=== PATIENT | female | born 1980 | race Hispanic/Latino ===

== ENCOUNTER 2024-08-08 01:17 | Emergency (ER) | payer OTHER ==
[~2024-08-08] VITALS: Ht 157.5 cm; Wt 58.5 kg
[2024-08-08 01:43] LABS: BASOPHILS # (AUTO) 0.09 K/uL (0.00-0.20); BASOPHILS % (AUTO) 0.9 % (0.0-5.0); EOSINOPHILS % (AUTO) 2.9 % (0.0-8.0); HEMATOCRIT 39.1 % (36-48); IMMATURE GRANULOCYTE ABSOLUTE 0.02 K/uL (0-1); LYMPHOCYTES # (AUTO) 3.8 K/uL (1.0-4.8); MEAN CORPUSCULAR HEMOGLOBIN 32.1 pg (27.0-33.0); MEAN CORPUSCULAR HGB CONC 34.3 g/dL (32.0-36.0); MEAN CORPUSCULAR VOLUME 93.5 fL (79-99); MONOCYTES # (AUTO) 0.8 K/uL (0.1-1.0); NEUTROPHILS # (AUTO) 5.3 K/uL (1.8-7.7); PLATELET COUNT (AUTO) 368 K/uL (130-400); RED BLOOD CELL COUNT(AUTO) 4.18 MIL/uL (4.00-5.50); RED CELL DISTRIBUTION WIDTH 12.7 % (11.0-15.5); WHITE BLOOD COUNT (AUTO) 10.4 K/uL (4.8-10.8)
[2024-08-08 01:51] LABS: CREATININE 0.7 mg/dL (0.5-1.0); POTASSIUM 3.5 mmol/L (3.5-5.1)
--- NOTE | 2024-08-08 01:54 | ERN ---
General Chief Complaint: Abdominal Pain Stated Complaint: C/O LUQ PAIN WITH NAUSEA Time Seen by MD: 01:24 Source: patient History of Present Illness Initial Comments 44-year-old female with left upper quadrant pain for two days that seems to transiently improve with eating but then gets worse. The pain has a periodicity of about 5 minutes A caveat is that while she is eating it seems she gets a bout of left upper quadrant pain when the food enters her stomach, but then the pain resolves after eating. Maalox has not helped the symptoms. No other systemic symptoms. She comes to the emergency room today because the pain is getting worse. No nausea no vomiting no change in her stool pattern. She does say that she has not passed gas in the last day. No symptoms of a urinary tract infection no chest pain no shortness of breath. The pain is localized to her left upper quadrant. She has no other medical problems. She did have surgery to remove fibroids but that was done transvaginally not transabdominally. Allergies: Coded Allergies: No Known Allergies (Unverified Allergy, Unknown, 08/08/24) Past Medical History Past Medical History: No Pertinent History Past Surgical History: Other Surgical History Other: Removal fibroids transvaginally Social History Dication Patient rarely drinks alcohol Female( History) LMP: Jul 24, 2024 Constitutional: (-) chills, (-) diaphoresis, (-) fever, (-) malaise, (-) weakness, (-) other documentation EENTM: (-) eye pain, (-) blurred vision, (-) tearing, (-) double vision, (-) ear pain, (-) ear discharge, (-) nose pain, (-) nose congestion, (-) throat pain, (-) Throat swelling, (-) mouth pain, (-) tooth pain, (-) mouth swelling, (-) other documentation Respiratory: (-) cough, (-) orthopnea, (-) short of breath, (-) stridor, (-) wheezing, (-) other documentation Cardiovascular: (-) chest pain, (-) edema, (-) palpitations, (-) syncope, (-) dyspnea on exertion, (-) other documentation Gastrointestinal/Abdominal: (+) abdominal pain; (-) nausea, (-) vomiting, (-) diarrhea, (-) abdominal distention, (-) constipation, (-) rectal bleeding, (-) dark stool/melena, (-) other documentation Musculoskeletal: (-) Neck pain, (-) back pain, (-) Flank Pain, (-) joint pain, (-) joint swelling, (-) muscle pain, (-) muscle stiffness, (-) gout, (-) other documentation Neuro: (-) altered mental status, (-) headache, (-) syncope, (-) paralysis, (-) numbness, (-) seizure, (-) pre-existing deficit, (-) tremors, (-) weakness, (-) dizziness, (-) slurred speech, (-) vertigo, (-) other documentation Physical Exam General Appearance: (+) mild distress General Appearance comment Lying in the bed massaging her left upper quadrant wondering why she is having so much pain. Gastrointestinal: (+) soft, (+) non-tender, (+) bowel sound present Gastrointestinal Comment Patient's abdomen is nontender I can palpate with a lot of pressure and she does not react. She does not have muscle pain and she does not have rib pain on the left side either. Results Laboratory and Microbiology Lab and Micro Result Laboratory Tests Test 08/08/24 01:38 08/08/24 03:13 White Blood Count 10.4 K/uL (4.8-10.8) Red Blood Count 4.18 MIL/uL (4.00-5.50) Hemoglobin 13.4 g/dL (12.0-16.0) Hematocrit 39.1 % (36-48) Mean Corpuscular Volume 93.5 fL (79-99) Mean Corpuscular Hemoglobin 32.1 pg (27.0-33.0) Mean Corpuscular Hemoglobin Concent 34.3 g/dL (32.0-36.0) Red Cell Distribution Width 12.7 % (11.0-15.5) Platelet Count 368 K/uL (130-400) Mean Platelet Volume 9.5 fL (7.5-10.5) Immature Granulocyte % (Auto) 0.2 % (0-1) Neutrophils (%) (Auto) 51.0 % (40.0-77.0) Lymphocytes (%) (Auto) 37.0 % (21.0-51.0) Monocytes (%) (Auto) 8.0 % (3.0-13.0) Eosinophils (%) (Auto) 2.9 % (0.0-8.0) Basophils (%) (Auto) 0.9 % (0.0-5.0) Neutrophils # (Auto) 5.3 K/uL (1.8-7.7) Lymphocytes # (Auto) 3.8 K/uL (1.0-4.8) Monocytes # (Auto) 0.8 K/uL (0.1-1.0) Eosinophils # (Auto) 0.30 K/uL (0.00-0.70) Basophils # (Auto) 0.09 K/uL (0.00-0.20) Absolute Immature Granulocyte (auto 0.02 K/uL (0-1) Nucleated Red Blood Cells 0.0 % (0.0-0.19) Sodium Level 141 mmol/L (136-145) Potassium Level 3.5 mmol/L (3.5-5.1) Chloride Level 102 mmol/L (101-111) Carbon Dioxide Level 28 mmol/L (21-32) Blood Urea Nitrogen 17 mg/dL (7-18) Creatinine 0.7 mg/dL (0.5-1.0) Glomerular Filtration Rate Calc 109 mL/min (>90) Random Glucose 108 mg/dL (70-105) H Total Calcium 9.3 mg/dL (8.5-10.1) Total Bilirubin 0.3 mg/dL (0.2-1.0) Direct Bilirubin 0.1 mg/dL (0.0-0.3) Aspartate Amino Transf (AST/SGOT) 17 U/L (10-37) Alanine Aminotransferase (ALT/SGPT) 17 U/L (12-78) Alkaline Phosphatase 75 U/L (50-136) Total Protein 7.5 g/dL (6.0-8.3) Albumin 3.4 g/dL (3.5-5.0) L Triglycerides Level 118 mg/dL (30-200) Lipase 95 U/L (16-77) H Serum Test, Qualitative NEGATIVE (NEGATIVE) Urine Color LIGHT-YELLOW (YELLOW) Urine Appearance CLEAR (CLEAR) Urine pH 7.5 (5.0-8.0) Urine Specific Deridder 1.019 (1.001-1.031) Urine Protein NEGATIVE mg/dL (NEGATIVE) Urine Glucose (UA) NEGATIVE mg/dL (NEGATIVE) Urine Ketones NEGATIVE mg/dL (NEGATIVE) Urine Occult Blood MODERATE (NEGATIVE) H Urine Nitrate NEGATIVE (NEGATIVE) Urine Bilirubin NEGATIVE mg/dL (NEGATIVE) Urine Urobilinogen 0.2 mg/dL (0.2-1.0) Urine Leukocyte Esterase NEGATIVE Rolando/uL Urine RBC 11-25 /HPF (0-1) H Urine WBC 2-5 /HPF (0-1) H Urine Squamous Epithelial Cells RARE /HPF (0-2) Urine Bacteria RARE /HPF (None Seen) Urine HCG, Qualitative NEGATIVE (NEGATIVE) MDM I am not sure what is causing the patient's pain. It could be constipation, small-bowel obstruction, GERD, musculoskeletal, gastric ulcer. I will give her a GI cocktail. Check the usual labs. CT scan of the abdomen without contrast. CT scan shows an indistinct enlarged pancreas. Possible thickened stomach wall. No free air. No bowel distention, small or large. No kidney stones or hydronephrosis; although, patient does have blood in her urine. The large bowel is full of stool. Laboratory studies show an elevated lipase with normal LFTs and normal triglycerides. All things right now point to pancreatitis mild. Mild Pancreatitis can be managed at home as long as the patient can stay hydrated and the pain is bearable. The alternative is admission to the hospital for IV fluids and pain medications. Patient seemed amenable to managing her pancreatitis at home. I do not have an explanation for her pancreatitis as her triglycerides are normal her glucose is normal and she rarely drinks alcohol. She will go home and stick to a liquid diet with soups and Gatorade for a day or two before trying regular food again. A repeat CT scan with IV contrast confirms diagnosis of gastroenteritis and still a rather indistinct looking pancreas. I gave the patient some Toradol it controlled her pain well. I will send her home with a prescription for Toradol. ED Course Orders Procedure Category Date Status Time Vital Signs Per CPOE 08/08/24 Transmitted Routine 01:34 Saline Lock Iv CPOE 08/08/24 Transmitted 01:34 Cbc With Differential LAB 08/08/24 Complete 01:34 Lipase LAB 08/08/24 Complete 01:34 Basic Metabolic Panel LAB 08/08/24 Complete 01:34 ,Urine Test LAB 08/08/24 Complete 01:55 Urinalysis Profile LAB 08/08/24 Complete 01:55 Lactated Ringers PHA 08/08/24 Complete 1000ml (Lactated 02:00 Lidocaine Hcl 2% PHA 08/08/24 Complete Viscous (Lidocaine Hcl 02:00 Mag/Alum/Simeth 30ml PHA 08/08/24 Complete (Maalox Plus 30ml) 02:00 Dicyclomine Hcl PHA 08/08/24 Complete (Bentyl 10mg/5ml 02:00 Ct Abdomen/Pelvis W/O CT 08/08/24 Taken Contrast 01:55 Testing, LAB 08/08/24 Complete Serum Hcg 02:18 Hepatic Function Panel LAB 08/08/24 Complete 02:25 Triglycerides LAB 08/08/24 Complete 02:50 Ct Abdomen/Pelvis CT 08/08/24 Taken W/Contrast 04:04 Iohexol (Omnipaque) PHA 08/08/24 Complete 04:17 Ketorolac PHA 08/08/24 Complete Tromethamine 30mg/Ml 05:30 Current Medications Medications (Trade) Dose Ordered Sig/Timothy Route PRN Reason Start Time Stop Time Status Last Admin Dose Admin Al Hydroxide/Mg Hydroxide (MAALox PLUS 30ML) 30 ml ONCE ONCE PO 08/08/24 02:00 08/08/24 02:01 DC 08/08/24 02:02 Dicyclomine HCl (Bentyl 10mg/5ml Syrup) 10 mg ONCE ONCE PO 08/08/24 02:00 08/08/24 02:01 DC 08/08/24 02:02 Iohexol (Omnipaque) 35,000 mg STK-MED ONCE IV 08/08/24 04:17 08/08/24 04:23 DC Ketorolac Tromethamine (toRADol) 30 mg ONCE ONCE IVP 08/08/24 05:30 08/08/24 05:31 DC 08/08/24 05:18 Lactated Ringer's 1,000 ml @ 0 mls/hr ONCE ONCE IV 08/08/24 02:00 08/08/24 02:01 DC 08/08/24 02:02 Lidocaine HCl (Lidocaine HCl 2% Viscous) 10 ml ONCE ONCE PO 08/08/24 02:00 08/08/24 02:01 DC 08/08/24 02:02 Vital Signs Date Time Temp Pulse Resp B/P (MAP) Pulse Ox O2 Delivery O2 Flow Rate FiO2 08/08/24 04:57 98.2 78 18 132/82 98 Room Air* 0 21 08/08/24 01:40 98.1 80 18 129/89 97 Room Air* 0 21 08/08/24 01:19 98.1 78 20 122/85 98 Room Air DX & DISP Disposition: Discharge Departure Impression: Primary Impression: Pancreatitis Additional Impression: Gastroenteritis Condition: Stable Scripts Ketorolac Tromethamine (Toradol) 10 Mg Tab 1 TAB PO Q6HPRN PRN for pain for 5 Days, #20 TAB 0 Refills Prov: MELLY LAGOS MD 08/08/24 Additional Instructions: Please return if you feel you are becoming dehydrated and if the pain does not improve in a few days. Referrals: SELF,REFERRAL (PCP) MELLY LAGOS MD Aug 08, 2024 01:54
[2024-08-08] MEDS: MAG/ALUM/SIMETH 30 ML UDCUP PO ONE (02:02)
[2024-08-08] MEDS: LACTATED RINGERS 1000ML 1,000 ML IV ONE (02:02)
[2024-08-08] MEDS: DICYCLOMINE HCL 10 MG/5 ML ML PO ONE (02:02)
[2024-08-08] MEDS: LIDOCAINE HCL 2% VISCOUS 15 ML UDCUP PO ONE (02:02)
--- NOTE | 2024-08-08 02:06 | NUR ---
Dioni traylor in [facility] - 08/08/24 at 0225 by DAWSON REPORT GIVEN TO NEIDA TAYLOR PT GOING TO [facility]
[2024-08-08 03:26] LABS: ALBUMIN 3.4 g/dL (3.5-5.0); BILIRUBIN,DIRECT 0.1 mg/dL (0.0-0.3); BILIRUBIN,TOTAL 0.3 mg/dL (0.2-1.0); TOTAL PROTEIN, SERUM 7.5 g/dL (6.0-8.3)
[2024-08-08 03:28] LABS: APPEARANCE,URINE CLEAR (CLEAR); BILIRUBIN,URINE NEGATIVE (NEGATIVE); COLOR,URINE LIGHT-YELLOW (YELLOW); GLUCOSE, URINE (UA) NEGATIVE (NEGATIVE); KETONES,URINE NEGATIVE (NEGATIVE); LEUKOCYTE ESTERASE ,URINE NEGATIVE Leu/uL (NEGATIVE); NITRATE,URINE NEGATIVE (NEGATIVE); OCCULT BLOOD,URINE MODERATE (NEGATIVE); PH,URINE 7.5 (5.0-8.0); PROTEIN,URINE NEGATIVE (NEGATIVE); UROBILINOGEN,URINE 0.2 mg/dL (0.2-1.0)
[2024-08-08 03:30] LABS: ADD UA MICROSCOPIC YES
[2024-08-08 03:34] LABS: BACTERIA,URINE RARE /HPF (None Seen); MUCUS,URINE RARE LPF (None Seen); SQUAMOUS EPITHELIAL CELL,UR RARE /HPF (0-2)
[2024-08-08 03:35] LABS: HCG,QUALITATIVE URINE NEGATIVE (NEGATIVE)
[2024-08-08] MEDS ORDERED: IOHEXOL 350 MG/ML 100ML INFUS..BTL IV ONE (04:17)
[2024-08-08] MEDS: ketOROlac 30MG VIAL (30MG/ML) IVP ONE (05:18)
[2024-08-08] MEDS ORDERED: KETO10 PO (05:45)
[2024-08-08 05:59] VITALS: BP 134/76; PULSE 72; RESP 18; TEMP 98; O2SAT 99
--- NOTE | 2024-08-08 08:13 | HMCIMG ---
CT ABDOMEN/PELVIS W/O CONTRAST HISTORY: Abdominal pain COMPARISON: None TECHNIQUE: Multiple sequential axial images of the abdomen and pelvis were obtained from the dome of the diaphragm through symphysis pubis. Patient was not given contrast through intravenous route. Oral contrast was not given. FINDINGS: No pleural effusion is seen bilaterally. There is no evidence of parenchymal disease or pulmonary nodule of the visualized lower lungs. Degenerative changes of the thoracolumbar spine are present. The heart is not enlarged. Liver measures 18.5 cm. The liver, spleen, adrenal glands and pancreas are unremarkable. There is no evidence of hydronephrosis bilaterally. There is left renal cyst measuring 10 mm. No evidence of renal stone is seen. Fecal material is seen in the colon. There are normal size retroperitoneal and mesenteric lymph nodes. No ascites is seen. Appendix is not completely well visualized limiting evaluation. Pelvic sidewalls are symmetric bilaterally. Bladder is poorly distended. IMPRESSION: 1. No acute findings. CT was performed with one or more following dose reduction techniques: automated exposure control, adjustment of the mA and kv according to patient's size, or use of a iterative reconstruction technique.
--- NOTE | 2024-08-08 08:22 | HMCIMG ---
CT ABDOMEN/PELVIS W/CONTRAST HISTORY: Pancreatitis COMPARISON: None TECHNIQUE: Multiple sequential axial images of the abdomen and pelvis were obtained from the dome of the diaphragm through symphysis pubis. Patient was given 100 cc of Isovue through intravenous route. Oral contrast was not given. FINDINGS: No pleural effusion is seen bilaterally. There is no evidence of parenchymal disease or pulmonary nodule of the visualized lower lungs. Degenerative changes of the thoracolumbar spine are present. The heart is not enlarged. Liver measures 18 cm. There is left renal cyst measuring 2 cm. There is gastric wall thickening in the antral portion measuring 10 mm may be related to gastritis with mass lesion not excluded. The liver, spleen, adrenal glands and pancreas are unremarkable. There is no evidence of hydronephrosis bilaterally. No evidence of renal stone is seen. Fecal material is seen in the colon. There are normal size retroperitoneal and mesenteric lymph nodes. No ascites is seen. Appendix is not well seen limiting evaluation. Pelvic sidewalls are symmetric bilaterally. Bladder is well distended without wall thickening. IMPRESSION: 1. No ascites is seen. Fecal material is seen in the colon. If there is clinical suspicion for appendicitis, urinalysis correlation may be helpful. There is left renal cyst measuring 2 cm. There is gastric wall thickening in the antral portion measuring 10 mm may be related to gastritis with mass lesion not excluded. CT was performed with one or more following dose reduction techniques: automated exposure control, adjustment of the mA and kv according to patient's size, or use of a iterative reconstruction technique.
== END 2024-08-08 06:00 | disposition home or self-care (01) ==
LOC: EDH 01:17
DX: K85.90 Acute pancreatitis without necrosis or infection, unspecified (principal); K52.9 Noninfective gastroenteritis and colitis, unspecified; Z98.890 Other specified postprocedural states
CPT/HCPCS: 99285; 74177; 96374; 96361; 84478; 80076; 80048; 84703; 83690; 85025; 81001; 81025; 36415; 74176; J1885; J7120; Q9967